=== PATIENT | male | born 1945 | race Caucasian/White ===

== ENCOUNTER 2016-12-25 12:43 | Observation (INO) | payer MEDICARE, OTHER ==
[~2016-12-25] VITALS: Ht 170.2 cm; Wt 68.0 kg
[~2016-12-25 12:43] MED LIST: ASPIR 8181 MG PO; ATORVASTATIN CA40 MG PO; BUPROPION HCL100 MG PO; CELEXA20 MG PO; COQ-10100 MG PO; DITROPAN 5 MG TA5 MG PO; ELIQUIS5 MG PO; FISH OIL 10001000 MG PO; IMDUR ER TAB 3030 MG PO; LISINOPRIL20 MG PO; LISINOPRIL40 MG PO; MIRALAX PACK 171 PKT PO; MULTAQ400 MG PO; NITROSTAT 0.40.4 MG SL; NORVASC 5 MG TAB5 MG PO; TRAZODONE HCL50 MG PO; ULTRAM50 MG PO
[2016-12-25 14:17] LABS: HEMOGLOBIN 14.1 gm/dl (14.0-17.5); RED BLOOD COUNT 4.52 M/UL (4.20-5.50); WHITE BLOOD COUNT 8.9 K/UL (4.5-11.0)
[2016-12-25 14:37] LABS: BUN/CREATININE RATIO 16 (0-10)
[2016-12-26 02:55] LABS: BUN/CREATININE RATIO 17 (0-10)
== END 2016-12-26 08:11 | disposition home or self-care (01) ==
LOC: ER1 12:43 → ZEROF 16:45 → MED SURG 4 18:16
PROVIDERS: Family Medicine; ADMIT Emergency Medicine
DX: R07.9 Chest pain, unspecified (principal); I10 Essential (primary) hypertension; E78.5 Hyperlipidemia, unspecified; K31.84 Gastroparesis; R73.03 Prediabetes; J45.909 Unspecified asthma, uncomplicated; K21.9 Gastro-esophageal reflux disease without esophagitis; I73.9 Peripheral vascular disease, unspecified; I48.0 Paroxysmal atrial fibrillation; M19.90 Unspecified osteoarthritis, unspecified site; G89.29 Other chronic pain; M54.5 Low back pain; F17.220 Nicotine dependence, chewing tobacco, uncomplicated; Z82.3 Family history of stroke; Z80.1 Family history of malignant neoplasm of trachea, bronchus and lung; Z79.01 Long term (current) use of anticoagulants; Z79.82 Long term (current) use of aspirin; Z79.899 Other long term (current) drug therapy; Z90.49 Acquired absence of other specified parts of digestive tract; Z98.890 Other specified postprocedural states
CPT/HCPCS: 36415; 71010; 80048; 80053; 80061; 82550; 82553; 83874; 84443; 84484; 85025; 93005; 93270; 99285; G0378

== ENCOUNTER 2020-09-03 05:25 | Emergency (ER) | payer MEDICARE, OTHER ==
[~2020-09-03 05:25] MED LIST changes: +BACITRACIN-POL1 EACH TOP; -MIRALAX PACK 171 PKT PO; +MIRALAX17 GM PO; +NORVASC5 MG PO
[2020-09-03 05:53] LABS: HEMOGLOBIN 15.5 gm/dl (14.0-17.5); RED BLOOD COUNT 4.81 M/UL (4.20-5.50); WHITE BLOOD COUNT 12.9 K/UL (4.5-11.0)
[2020-09-03] MEDS ORDERED: TORADOL 10 MG T10 MG PO (09:43)
[2020-09-03] MEDS ORDERED: REGLAN5 MG PO (09:43)
== END 2020-09-03 09:50 | disposition home or self-care (01) ==
LOC: ER1 05:25
PROVIDERS: Emergency Medicine
DX: N13.2 Hydronephrosis with renal and ureteral calculous obstruction (principal); N28.89 Other specified disorders of kidney and ureter; I48.91 Unspecified atrial fibrillation; Z90.49 Acquired absence of other specified parts of digestive tract
CPT/HCPCS: 71045; 80053; 81001; 83605; 83690; 84484; 85025; 93005; 96374; 96375; 99284; J1885; J2270; J2405; J2765; Q9967

== ENCOUNTER 2020-09-07 16:09 | Inpatient (IN) | payer MEDICARE, OTHER ==
[~2020-09-07] VITALS: Ht 170.2 cm; Wt 71.4 kg
[~2020-09-07 16:09] MED LIST changes: +REGLAN5 MG PO; +TORADOL 10 MG T10 MG PO
[2020-09-07 19:38] LABS: HEMOGLOBIN 14.6 gm/dl (14.0-17.5); RED BLOOD COUNT 4.56 M/UL (4.20-5.50); WHITE BLOOD COUNT 12.7 K/UL (4.5-11.0)
[2020-09-07] MEDS ORDERED: ZESTRIL20 MG PO (23:07)
[2020-09-07] MEDS ORDERED: WELLBUTRIN XL300 M1 PO (23:08)
[2020-09-07] MEDS ORDERED: LOPRESSOR 25 MG25 MG PO (23:13)
[2020-09-07] MEDS ORDERED: DESYREL 50 MG T50 MG PO (23:15)
[2020-09-07] MEDS ORDERED: CARAFATE 1 GM TA1 GM PO (23:19)
[2020-09-07] MEDS ORDERED: ISOSORBIDE MONO30 MG PO (23:21)
[2020-09-07] MEDS ORDERED: OXYBUTYNIN CHLOR5 MG PO (23:29)
[2020-09-08 07:38] LABS: HEMOGLOBIN 13.6 gm/dl (14.0-17.5); RED BLOOD COUNT 4.37 M/UL (4.20-5.50); WHITE BLOOD COUNT 11.5 K/UL (4.5-11.0)
[2020-09-08 07:52] LABS: BUN/CREATININE RATIO 16 (0-10)
[2020-09-09 03:56] LABS: HEMOGLOBIN 12.6 gm/dl (14.0-17.5); RED BLOOD COUNT 3.95 M/UL (4.20-5.50); WHITE BLOOD COUNT 10.2 K/UL (4.5-11.0)
[2020-09-09 04:17] LABS: BUN/CREATININE RATIO 16 (0-10)
[2020-09-09] MEDS ORDERED: LOPRESSOR 50 MG50 MG PO (09:39)
== END 2020-09-09 11:35 | disposition home or self-care (01) | DRG 309 ==
LOC: ER1 16:09 → ZEROF 21:54 → PROG CARE 09-08 08:13
PROVIDERS: Internal Medicine; Physician Assistant Medical; ADMIT Internal Medicine
DX: I48.0 Paroxysmal atrial fibrillation (principal); N17.9 Acute kidney failure, unspecified; N13.2 Hydronephrosis with renal and ureteral calculous obstruction; Z79.01 Long term (current) use of anticoagulants; R94.31 Abnormal electrocardiogram [ECG] [EKG]; I12.9 Hypertensive chronic kidney disease with stage 1 through stage 4 chronic kidney disease, or unspecified chronic kidney disease; N18.30 Chronic kidney disease, stage 3 unspecified; D72.829 Elevated white blood cell count, unspecified; Z96.641 Presence of right artificial hip joint; K21.9 Gastro-esophageal reflux disease without esophagitis; I25.10 Atherosclerotic heart disease of native coronary artery without angina pectoris; Z95.5 Presence of coronary angioplasty implant and graft; Z79.899 Other long term (current) drug therapy; Z90.49 Acquired absence of other specified parts of digestive tract; R11.2 Nausea with vomiting, unspecified; K44.9 Diaphragmatic hernia without obstruction or gangrene
CPT/HCPCS: ECHO; 36415; 80048; 80053; 81001; 82550; 82553; 83605; 83735; 83874; 84484; 85025; 85027; 87635; 90471; 93005; 93306; 96374; 96375; 96376; 99285; J0696; J2270; J2405; J7030

== ENCOUNTER → 2020-10-11 | Outpatient (CLI) | payer MEDICARE ==
[~2020-10-11] MED LIST changes: +CARAFATE 1 GM TA1 GM PO; +DESYREL 50 MG T50 MG PO; +ISOSORBIDE MONO30 MG PO; +LOPRESSOR 25 MG25 MG PO; +LOPRESSOR 50 MG50 MG PO; +OXYBUTYNIN CHLOR5 MG PO; +WELLBUTRIN XL300 M1 PO; +ZESTRIL20 MG PO
[2020-10-11 15:17] LABS: HEMOGLOBIN 14.1 gm/dl (14.0-17.5); RED BLOOD COUNT 4.44 M/UL (4.20-5.50); WHITE BLOOD COUNT 8.1 K/UL (4.5-11.0)
== END ==
LOC: LAB 14:04
PROVIDERS: Nurse Practitioner
DX: R06.02 Shortness of breath (principal); R53.83 Other fatigue; Z86.79 Personal history of other diseases of the circulatory system
CPT/HCPCS: 36415; 80053; 85025; 85379

== ENCOUNTER → 2020-10-26 | Outpatient (CLI) | payer MEDICARE, OTHER | LOC: EXRD 13:09 | DX: M13.811 Other specified arthritis, right shoulder (principal) | CPT/HCPCS: 73030 ==

== ENCOUNTER → 2020-11-10 | Outpatient (CLI) | payer MEDICARE, OTHER | LOC: LAB 09:32 | PROVIDERS: Emergency Medicine | DX: I10 Essential (primary) hypertension (principal); E78.2 Mixed hyperlipidemia; M15.8 Other polyosteoarthritis; M13.811 Other specified arthritis, right shoulder; R53.83 Other fatigue | CPT/HCPCS: 36415; 80048 ==

== ENCOUNTER → 2021-01-11 | Outpatient (CLI) | payer MEDICARE, OTHER ==
[2021-01-11 09:57] LABS: HEMOGLOBIN 13.9 gm/dl (14.0-17.5); RED BLOOD COUNT 4.3 M/UL (4.20-5.50); WHITE BLOOD COUNT 6.6 K/UL (4.5-11.0)
[2021-01-11 10:21] LABS: BUN/CREATININE RATIO 12 (0-10)
== END ==
LOC: LAB 09:16
PROVIDERS: Emergency Medicine
DX: I12.9 Hypertensive chronic kidney disease with stage 1 through stage 4 chronic kidney disease, or unspecified chronic kidney disease (principal); N18.30 Chronic kidney disease, stage 3 unspecified; E78.2 Mixed hyperlipidemia; R53.83 Other fatigue
CPT/HCPCS: 36415; 71046; 80053; 84443; 84550; 85025

== ENCOUNTER 2021-03-04 10:16 | Emergency (ER) | payer MEDICARE, OTHER ==
[2021-03-04 11:13] LABS: HEMOGLOBIN 13.3 gm/dl (14.0-17.5); RED BLOOD COUNT 4.33 M/UL (4.20-5.50); WHITE BLOOD COUNT 7.1 K/UL (4.5-11.0)
== END 2021-03-04 15:15 | disposition home or self-care (01) ==
LOC: ER1 10:16
PROVIDERS: Physician Assistant Medical
DX: U07.1 COVID-19 (principal); Z95.0 Presence of cardiac pacemaker
CPT/HCPCS: 71045; 80053; 84484; 85025; 99285

== ENCOUNTER → 2021-04-21 | Outpatient (CLI) | payer MEDICARE, OTHER ==
[2021-04-22 16:14] LABS: CHOLESTEROL, TOTAL 149 mg/dL (100-199); HDL SIZE 9.9 nm (>=9.2); HDL-C 67 mg/dL (>39); HDL-P (TOTAL) 33.3 umol/L (>=30.5); LARGE HDL-P 9.8 umol/L (>=4.8); LARGE VLDL-P 1.2 nmol/L (<=2.7); LDL SIZE 20.8 nm (>20.5); LDL SIZE 20.8 nm (>=20.8); LDL-C 69 mg/dL (0-99); LDL-P 612 nmol/L (<1000); LP-IR SCORE <25 (<=45); SMALL LDL-P 251 nmol/L (<=527); TRIGLYCERIDES 61 mg/dL (0-149); VLDL SIZE 46.5 nm (<=46.6)
== END ==
LOC: LAB 09:06
PROVIDERS: Emergency Medicine
DX: I12.9 Hypertensive chronic kidney disease with stage 1 through stage 4 chronic kidney disease, or unspecified chronic kidney disease (principal); N18.30 Chronic kidney disease, stage 3 unspecified; E78.2 Mixed hyperlipidemia
CPT/HCPCS: 36415; 80048; 80061; 83704

== ENCOUNTER → 2021-09-16 | Outpatient (CLI) | payer OTHER, MEDICARE | LOC: KOH-I 13:04 | DX: M25.521 Pain in right elbow (principal); M25.551 Pain in right hip; M25.561 Pain in right knee | CPT/HCPCS: 73080; 73502; 73562 ==

== ENCOUNTER → 2021-11-03 | Outpatient (CLI) | payer OTHER | LOC: US 14:30 | DX: I73.89 Other specified peripheral vascular diseases (principal) | CPT/HCPCS: 93925 ==

== ENCOUNTER → 2022-03-02 | Outpatient (CLI) | payer OTHER, MEDICARE ==
[2022-03-02 09:51] LABS: HEMOGLOBIN 13.6 gm/dl (14.0-17.5); RED BLOOD COUNT 4.16 M/UL (4.20-5.50)
== END ==
LOC: LAB 09:17
PROVIDERS: Nurse Practitioner
DX: R53.83 Other fatigue (principal)
CPT/HCPCS: 36415; 80053; 83735; 84443; 85025

== ENCOUNTER 2022-03-26 17:13 | Emergency (ER) | payer OTHER, MEDICARE | END 2022-03-26 19:35 | disposition left against medical advice (07) | LOC: ER1 17:13 | DX: Z53.21 Procedure and treatment not carried out due to patient leaving prior to being seen by health care provider (principal) ==

== ENCOUNTER → 2022-04-17 | Outpatient (CLI) | payer OTHER, MEDICARE ==
[2022-04-17 13:40] LABS: HEMOGLOBIN 13.4 gm/dl (14.0-17.5); RED BLOOD COUNT 4.12 M/UL (4.20-5.50); WHITE BLOOD COUNT 6.7 K/UL (4.5-11.0)
[2022-04-17 14:02] LABS: BUN/CREATININE RATIO 10 (0-10)
== END ==
LOC: LAB 12:56
PROVIDERS: Nurse Practitioner
DX: I10 Essential (primary) hypertension (principal); E78.2 Mixed hyperlipidemia; R53.83 Other fatigue
CPT/HCPCS: 36415; 80053; 85025